=== PATIENT | male | born 1945 | race Caucasian/White ===

== ENCOUNTER 2016-12-09 22:01 | Emergency (ER) | payer SELFPAY ==
[~2016-12-09] VITALS: Ht 167.6 cm; Wt 71.5 kg
[2016-12-09 22:07] VITALS: Ht 167.6 cm; Wt 71.5 kg
[2016-12-09] MEDS ORDERED: ENAL5TAB PO (23:44)
--- NOTE | 2016-12-09 23:45 | ERD ---
ER Documentation Chief Complaint Date/Time DATE: 12/09/16 TIME: 23:41 Chief Complaint frequency of urination , painful urination x 1 day HPI 71-year-old male presents here in emergency department for complaints of urinary urgency frequency and dysuria started yesterday. Patient is complaining of pain upon urination, burning pain, 4/10 scale, accompanied with urinary urgency and frequency. Patient denies any hematuria. Patient denies any penile discharge. Patient denies any urinary retention. Patient denies any flank pain abdominal pain nausea vomiting fever. ROS All systems reviewed and are negative except as per history of present illness. Medications Home Meds Active Scripts Phenazopyridine Hcl* (Pyridium*) 200 Mg Tab, 200 MG PO TID Y for URINARY PAIN, # 6 TAB Prov:GURPREET CHAN NP 12/10/16 Tamsulosin Hcl* (Flomax*) 0.4 Mg Cap.er.24h, 0.4 MG PO QPM, #30 CAP Prov:GURPREET CHAN NP 12/10/16 Reported Medications Enalapril Maleate* (Enalapril Maleate*) Unknown Strength Tablet, PO DAILY, TAB 12/09/16 Allergies Allergies: Coded Allergies: No Known Allergy (Unverified , 12/09/16) PMhx/Soc History of Surgery: No Anesthesia Reaction: No Hx Neurological Disorder: No Hx Respiratory Disorders: No Hx Cardiac Disorders: Yes (HTN) Hx Psychiatric Problems: No Hx Miscellaneous Medical Probl: No Hx Alcohol Use: No Hx Substance Use: No Hx Tobacco Use: No Smoking Status: Never smoker FmHx Family History: No coronary disease, No diabetes, No other Physical Exam Vitals Vital Signs Date Time Temp Pulse Resp B/P Pulse Ox O2 Delivery O2 Flow Rate FiO2 12/09/16 22:07 98.3 86 20 170/80 98 Physical Exam GENERAL: The patient is well developed and appropriate for usual state of health, in no apparent distress. CHEST: Clear to auscultation bilaterally. There are no rales, wheezes or rhonchi. HEART: Regular rate and rhythm. No murmurs, clicks, rubs or gallops. No S3 or S4. ABDOMEN: Soft, nontender and nondistended. Good bowel sounds. No rebound or guarding. No gross peritonitis. No gross organomegaly or masses. No Carty sign or McBurney point tenderness. BACK: No midline or flank tenderness. EXTREMITIES: Equal pulses bilaterally. There is no peripheral clubbing, cyanosis or edema. No focal swelling or erythema. Full range of motion. Grossly neurovascularly intact. NEURO: Alert and oriented. Cranial nerves 2-12 intact. Motor strength in all 4 extremities with 5/5 strength. Sensation grossly intact. Normal speech and gait. SKIN: There is no apparent rash or petechia. The skin is warm and dry. HEMATOLOGIC AND LYMPHATIC: There is no evidence of excessive bruising or lymphedema. No gross cervical, axillary, or inguinal lymphadenopathy. : Noted mild enlargement of the prostate. No penile discharge noted. No scrotal swelling, tenderness noted. Results 24 hrs Laboratory Tests Test 12/10/16 00:06 Bedside Urine pH (LAB) 5.5 Bedside Urine Protein (LAB) Negative Bedside Urine Glucose (UA) Negative Bedside Urine Ketones (LAB) Negative Bedside Urine Blood Negative Bedside Urine Nitrite (LAB) Negative Bedside Urine Leukocyte Esterase (L Negative Procedures/MDM Medical decision making: Patient's symptoms would like it consistent with benign prostatic hypertrophy, further evaluation by urologist she was was recommended. No urinary tract infection at this time. No penile discharge. No symptoms of epididymitis orchitis. Patient was given prescriptions for tamsulosin, Pyridium. Patient was advised to follow-up with primary care doctor in 2-3 days for reevaluation of symptoms. Patient is advised to return to emergency department for any worsening symptoms. Disposition: Home. Stable Departure Diagnosis: Primary Impression: Genitourinary symptoms Condition: Stable GURPREET CHAN NP Dec 09, 2016 23:45
[2016-12-09 23:59] LABS: URINE BLOOD (Dip) POC Negative (NEGATIVE)
[2016-12-10] MEDS ORDERED: TAMS-14 PO (00:02)
[2016-12-10] MEDS ORDERED: PHEN-538 PO (00:02)
== END 2016-12-10 00:12 | disposition home or self-care (01) ==
LOC: FTE 22:01
DX: R35.0 Frequency of micturition (principal); R39.15 Urgency of urination; R30.0 Dysuria; I10 Essential (primary) hypertension
CPT/HCPCS: 81003; 99283